=== PATIENT | female | born 1985 | race Caucasian/White ===

== ENCOUNTER 2017-08-31 11:59 | Emergency (ER) | payer OTHER ==
[~2017-08-31] VITALS: Ht 160 cm; Wt 61.2 kg
[~2017-08-31 11:59] MED LIST: HYDROCODONE-AP1 EAC6 PO; ZOFRAN ODT4 MG PO
[2017-08-31 12:22] LABS: URINE BILIRUBIN NEGATIVE (Negative); URINE BLOOD NEGATIVE (Negative); URINE CLARITY CLEAR; URINE COLOR YELLOW; URINE GLUCOSE-RANDOM NEGATIVE (Negative); URINE KETONES NEGATIVE (Negative); URINE LEUKOCYTES-REFLEX NEGATIVE (Negative); URINE NITRITE-REFLEX NEGATIVE (Negative); URINE PROTEIN NEGATIVE (Negative); URINE UROBILINOGEN 0.2 E.U./dl (0.2-1.0)
[2017-08-31] MEDS ORDERED: PRENATAL (12:24)
[2017-08-31] MEDS ORDERED: WELLBUTRIN XL300 MG PO (12:25)
[2017-08-31 12:28] LABS: ABSOLUTE BASOPHILS 0.1 thou/uL (0.0-0.2); ABSOLUTE EOSINOPHILS 0.2 thou/uL (0.0-0.7); ABSOLUTE LYMPHOCYTES 3.3 thou/uL (0.8-5.3); ABSOLUTE NEUTROPHILS 8.4 thou/uL (1.6-8.1); BASOPHILS 0.7 %; EOSINOPHILS 1.3 %; HEMATOCRIT 37.7 % (37.0-47.0); HEMOGLOBIN 12.2 gm/dL (12.0-15.0); LYMPHOCYTES 25.4 %; MCH 28.9 pg (26.0-34.0); MCHC 32.3 g/dL (28.0-37.0); MCV 89.5 fL (80.0-100.0); MONOCYTES 7.8 %; MPV 8.8 fl. (7.2-11.1); NUCLEATED RBCS 0 /100WBC; PLATELET COUNT* 489 thou/uL (150-400); POLYS 64.8 %; RBC 4.21 mil/uL (4.20-5.00); RDW-CV 13.4 % (10.5-14.5)
[2017-08-31 12:35] LABS: CALCIUM 9.1 mg/dL (8.5-10.1); CREATININE 0.5 mg/dL (0.6-1.3); POTASSIUM 3.9 mmol/L (3.5-5.1)
[2017-08-31 12:40] LABS: ALBUMIN 3.1 g/dL (3.4-5.0); TOTAL BILIRUBIN 0.7 mg/dL (<0.1-1.0); TOTAL PROTEIN 7.5 g/dL (6.4-8.2)
[2017-08-31 13:03] LABS: AMP/METHAMP Negative (Negative); BARBITURATES Negative (Negative); BENZODIAZEPINES Negative (Negative); COCAINE Negative (Negative); METHADONE Negative (Negative); OPIATES Negative (Negative); PCP Negative (Negative); THC Negative (Negative)
[2017-08-31 13:08] LABS: ACETAMINOPHEN < 2 ug/mL (10-30); ALCOHOL < 10 mg/dL (<10); SALICYLATE < 2.8 mg/dL (2.8-20.0)
[2017-08-31 23:43] VITALS: BP 106/82
== END 2017-08-31 23:43 ==
LOC: M.ERS 11:59
PROVIDERS: Family Medicine
DX: R45.851 Suicidal ideations (principal); F32.9 Major depressive disorder, single episode, unspecified

== ENCOUNTER 2020-01-04 13:26 | Emergency (ER) | payer OTHER ==
[~2020-01-04] VITALS: Ht 160 cm; Wt 68.0 kg
[~2020-01-04 13:26] MED LIST changes: +PRENATAL; +WELLBUTRIN XL300 MG PO
[2020-01-04] MEDS ORDERED: ZOLOFT25 MG PO (14:03)
[2020-01-04] MEDS ORDERED: TESSALON PERLE100 M1 PO (17:33)
[2020-01-04] MEDS ORDERED: ZPAK PO (17:33)
[2020-01-04 17:38] VITALS: BP 111/65
--- NOTE | 2020-01-05 17:04 | EKG ---
[place] [address] ELECTROCARDIOGRAM REPORT Name: IRA MORRISSEY Room: [facility]#: [id number] Admission: 01/04/20 Attend Phys: Discharge: 01/04/20 Date of : 87 Date of Service: 01/04/20 1401 Report #: [id number] THIS REPORT FOR: //name// [facility] ED Test Date: 2020-01-04 Test Time: 14:01:59 Pat Name: IRA MORRISSEY Department: Room: Gender: F Public Relations Associate: [facility] : 1985 Requested By: Ulises Sr Order Number: [id number] Maria Elena MD: Jayro Hernandez Measurements Intervals [place] Rate: 73 P: -21 OK: 193 QRS: 85 QRSD: 92 T: 48 QT: 359 QTc: 396 Interpretive Statements Sinus rhythm Baseline wander in lead(s) II,III,aVF No previous ECG available for comparison Electronically Signed On 01-05-2020 17:04:20 DECORATING [employer]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 01/05/20 1704 140 00 Jayro Hernandez MD, FAC /EPI
== END 2020-01-04 17:39 | disposition home or self-care (01) ==
LOC: M.ERS 13:26
DX: J45.909 Unspecified asthma, uncomplicated (principal); Z20.828 Contact with and (suspected) exposure to other viral communicable diseases; Z79.899 Other long term (current) drug therapy